=== PATIENT | female | born 1990 | race Caucasian/White ===

== ENCOUNTER → 2017-12-25 13:41 | Observation (INO) ==
[2017-12-25 10:44] LABS: Basophils # 0.1 K/mcL (0.0-0.2); Basophils % 0.4 %; Eosinophils # 0.1 K/mcL (0.0-0.6); Eosinophils % 0.8 %; Hematocrit 36.8 % (35.3-44.9); Hemoglobin 12.7 g/dL (11.5-15.4); Lymphocytes # 1.9 K/mcL (0.6-4.6); Lymphocytes % 15.5 %; Mean Corpuscular HGB Conc 34.5 g/dL (31.6-35.5); Mean Corpuscular Hemoglobin 29.4 pg (28.0-33.3); Mean Corpuscular Volume 85.2 fL (83.0-100.0); Mean Platelet Volume 11.6 fL (9.4-12.4); Monocytes # 0.7 K/mcL (0.0-1.3); Monocytes % 6.1 %; Neutrophils # 9.1 K/mcL (1.6-8.9); Platelet Count 242 K/mcL (140-400); Red Blood Count 4.32 M/mcL (3.82-4.97); Red Cell Distribution Width 13.2 % (11.5-14.5); Segmented Neutrophils % 76.2 %
[2017-12-25 10:53] LABS: Amphetamine Screen,Urine Negative ng/mL (Cutoff=1000); Barbiturate Screen,Urine Negative ng/mL (Cutoff=200); Benzodiazepines Screen,Urine Negative ng/mL (Cutoff=200); Cannabinoid Screen,Urine Negative ng/mL (Cutoff = 50); Cocaine Screen,Urine Negative ng/mL (Cutoff= 300); Opiate Screen,Urine Negative ng/mL (Cutoff=300); Phencyclidine Screen,Urine Negative ng/mL (Cutoff=25)
[2017-12-25 11:04] LABS: Alanine Aminotransferase 14 Units/L (7-52); Aspartate Amino Transferase 11 Units/L (13-39); BUN/Creatinine Ratio 13 (6-26); Blood Urea Nitrogen 6 mg/dL (6-20); Lactate Dehydrogenase 100 Units/L (140-271); Uric Acid 3.4 mg/dL (2.3-7.6); eGFR For Non-African Americans > 60 (> 60)
[~2017-12-25 13:41] MED LIST: Acetaminophen/Butalbital/CaffeineTABLET PO PRN
--- NOTE | 2017-12-25 13:49 | OB/GYN Progress Note ---
Date of Encounter: 12/25/17 Time of Encounter: 13:49 - Assessment and Plan (1) Headache in Status: Acute PIH labs negative, given 1 Fioricet tablet, headache improved, discharged home with labor and when to return to triage precautions. Qualifiers: Trimester: second trimester Qualified Code(s): O26.892 - Other specified related conditions, second trimester; R51 - Headache (2) 21 weeks gestation of Status: Acute Subjective - Subjective Interval history: 21+2 weeks gestation presents to triage for PIH eval. Patient sent over from office due to reports of headache, for the last few days unrelieved by Tylenol, and visual changes. Denies contractions vaginal bleeding or leaking of fluid Objective - Exam FHR: auscultation normal FHR comments: FHT 150 on admission and 148 at discharge. Abdomen: Present: soft, gravid - Labs Labs: Abnormal lab results WBC 11.9 K/mcL (4.3-11.1) H 12/25/17 10:15 Neutrophils # 9.1 K/mcL (1.6-8.9) H 12/25/17 10:15 Creatinine 0.47 mg/dL (0.60-1.20) L 12/25/17 10:15 AST 11 Units/L (13-39) L 12/25/17 10:15 Lactate Dehydrogenase 100 Units/L (140-271) L 12/25/17 10:15
== END | disposition home or self-care (01) ==
LOC: 1NENULAB
PROVIDERS: ADMIT Obstetrics & Gynecology; ATTEND Obstetrics & Gynecology

== ENCOUNTER → 2018-04-15 15:24 | Observation (INO) ==
[2018-04-15 14:25] LABS: Amphetamine Screen,Urine Negative ng/mL (Cutoff=1000); Barbiturate Screen,Urine Negative ng/mL (Cutoff=200)
[2018-04-15 14:27] LABS: Benzodiazepines Screen,Urine Negative ng/mL (Cutoff=300); Cannabinoid Screen,Urine Negative ng/mL (Cutoff = 50); Cocaine Screen,Urine Negative ng/mL (Cutoff= 300); Opiate Screen,Urine Negative ng/mL (Cutoff=300); Phencyclidine Screen,Urine Negative ng/mL (Cutoff=25)
[2018-04-15 15:03] LABS: Candida DNA Not Detected (Not Detect); Gardnerella DNA DETECTED (Not Detect); Trichomonas DNA Not Detected (Not Detect)
--- NOTE | 2018-04-15 15:09 | OB/GYN History & Physical ---
Date of Encounter: 04/15/18 Time of Encounter: 15:07 Assessment and Plan (1) 37 weeks gestation of Current visit: Yes Status: Acute Admitted to observation for possible fluid leakage (2) NST (non-stress test) reactive Current visit: Yes Status: Acute FHR 135 bpm, moderate variability, +15 x 15 accelerations, no decelerations (3) BV (bacterial vaginosis) Current visit: Yes Status: Acute Vaginosis panel positive for Gardnerella Flagyl prescription will be sent to patient's pharmacy of choice (4) Vaginal discharge during in third trimester Current visit: Yes Status: Acute Bacterial vaginosis sample collected and sent to lab. Returned positive for Gardnerella. Prescription will be sent to pharmacy. History of Present Illness Chief complaint: Vaginal discharge HPI: Ms. Black is a 27 year old female at 37 weeks 1 day who arrives today with complaints of possible fluid leakage since yesterday. She reports positive movement and denies vaginal bleeding. She states the discharge was watery without odor or color. She denies having to wear a maxi pad but has changed her panties multiple times. Past Med Surg Social Fam HX - Past Medical History Medical history: no medical history, migraine Psychiatric history: depression - Past Surgical History Surgical History: herniorrhaphy Additional surgical history: Umbilical hernia repair at 2 years old - Social History Smoking Status: Current every day smoker Packs per day: 1/2 PPD Smokeless Tobacco Status: No Alcohol use: none Drug use: none - Family History Mother Adopted: [place]: Pt. denies family medical history Family Member Ethnicity: Non- Living Status: Still Living Hx Family Cardiac Disorders: No Hx Family Respiratory Disorders: No Hx Family Cancer: No Hx Family GI Disorders: No Hx Family Endocrine Disorder: No Hx Family Neuromuscular Disorders: No Hx Family Neurologic Disorders: No Hx Family HEENT Disorders: No Hx Family Autoimmune Disorders: No Obstetrical History - Pregnancies : 3 Para: 2 Term: 2 : 0 Ab's: 0 Livin Medications and Allergies Vit #108/Iron/FA [ One Tablet] 1 tab PO DAILY 12/25/17 [History] Fioricet 1 cap PO PRN 04/15/18 [History] Labetalol [Trandate] 100 mg PO BID PRN 04/15/18 [History] metFORMIN [Glucophage] 500 mg PO 04/15/18 [History] Allergy/AdvReac Type Severity Reaction Status Date / Time No Known Allergies Allergy Verified 10/25/16 22:13 Exam - Constitutional Constitutional: well developed, well nourished, no acute distress, average body habitus - HEENT HEENT: Normocephaly - Neck Neck exam: full ROM, normal inspection - Lungs Respiratory exam: CTAB - Cardiovascular Cardiovascular exam: RRR, +S1, +S2 - Breasts Breast: bilateral: normal - Abdomen Abdomen: Present: bowel sounds normal, gravid, non tender - Extremities Extremities exam: full ROM, normal capillary refill, normal inspection - Vulva Vulva: bilateral: normal - Vagina Vagina: Present: normal moisture, discharge - Cervix Dilation: 3 Effacement: 0 (thick) Station: -4 - Uterus Uterus exam: Present: normal size - Anus/Rectum Anus/Rectum: Present: normal perianal skin Results Abnormal lab results Gardnerella DNA Probe DETECTED (Not Detect) A 04/15/18 13:50 All other labs normal. - VTE Reasons for not Prescribing Prophylaxis: Treatment not Indicated - Low risk for VTE
== END | disposition home or self-care (01) ==
LOC: 1NENULAB
PROVIDERS: ADMIT Registered Nurse; ATTEND Registered Nurse

== ENCOUNTER 2018-04-28 06:00 | Inpatient (IN) ==
[2018-04-28] MEDS ORDERED: *HR* Nalbuphine 10 MG/ML AMPUL IVP PRN (06:19)
[2018-04-28] MEDS ORDERED: Famotidine 20 MG/2 ML VIAL IVP PRN (06:19)
[2018-04-28] MEDS ORDERED: Metoclopramide 10 MG/2 ML VIAL IVP PRN (06:19)
[2018-04-28] MEDS ORDERED: Naloxone 0.4 MG/ML INJ IVP PRN (06:19)
[2018-04-28] MEDS ORDERED: miSOPROStol 25 MCG TABLET PO ONE (06:25)
[2018-04-28] MEDS ORDERED: Ringers Solution, Lactated 1,000 ML IVC SCH (06:30)
--- NOTE | 2018-04-28 06:51 | Anesthesia Evaluation PreOp ---
Date of Encounter: 04/28/18 Time of Encounter: 06:48 - Past History Planned Operation: del, term induction Cardiac History: Denies any Significant Hx Pulmonary History: Smoker SERVICE DELIVERY MANAGER History: Denies Any Significant HX Other Medical History: Other (depression, migraines) Anesthesia History: No Prior Anesthetic Complications, Past Anesthesia (hernia as child, denies any family hx, 2 previous epidurals one worked one did not (stated she had back labor with one)) Alcohol Use: none Drug use: none Medications and Allergies Vit #108/Iron/FA [ One Tablet] 1 tab PO DAILY 12/25/17 [History] Fioricet 1 cap PO PRN 04/15/18 [History] Labetalol [Trandate] 100 mg PO BID PRN 04/15/18 [History] metFORMIN [Glucophage] 500 mg PO 04/15/18 [History] Allergy/AdvReac Type Severity Reaction Status Date / Time No Known Allergies Allergy Verified 04/28/18 06:29 Anesthesia Exam - HEENT Pupil (Motor): Pupils equal Mallampati: III Teeth: Normal Oral Opening: Greater than 3 - SERVICE DELIVERY MANAGER LOC: Oriented SERVICE DELIVERY MANAGER Motor: Normal RUE, Normal LUE, Normal RLE, Normal LLE, Normal Face SERVICE DELIVERY MANAGER Sensory: Normal: RUE, LUE, RLE, LLE, Face - Cardiac Rhythm: Regular Murmur: None - Pulmonary Breath Sounds: bilateral Clear Respiratory Effort: Symmetrical Anesthesia Assess/Plan ASA Score: 2 Level of consciousness: Cooperative, Oriented Anesthetic Plan: General, Spinal, Epidural Monitoring Plan: Standard Monitors Recovery Plan: PACU
[2018-04-28] MEDS ORDERED: Epidural Premix (fent/bupiv) 110 ML EP SCH (07:00)
[2018-04-28 07:06] LABS: Basophils % 0.3 %; Eosinophils # 0.1 K/mcL (0.0-0.6); Eosinophils % 0.9 %; Hematocrit 39.6 % (35.3-44.9); Hemoglobin 13.5 g/dL (11.5-15.4); Immature Granulocytes % 0.9 % (0-4); Lymphocytes # 2.3 K/mcL (0.6-4.6); Lymphocytes % 19.5 %; Mean Corpuscular HGB Conc 34.1 g/dL (31.6-35.5); Mean Corpuscular Hemoglobin 29.6 pg (28.0-33.3); Mean Corpuscular Volume 86.8 fL (83.0-100.0); Mean Platelet Volume 11.7 fL (9.4-12.4); Monocytes # 1.1 K/mcL (0.0-1.3); Neutrophils # 8.1 K/mcL (1.6-8.9); Platelet Count 230 K/mcL (140-400); Red Blood Count 4.56 M/mcL (3.82-4.97); Red Cell Distribution Width 13.9 % (11.5-14.5); Segmented Neutrophils % 69.4 %
[2018-04-28 07:07] LABS: Amphetamine Screen,Urine Negative ng/mL (Cutoff=1000); Barbiturate Screen,Urine Negative ng/mL (Cutoff=200)
[2018-04-28 07:09] LABS: Benzodiazepines Screen,Urine Negative ng/mL (Cutoff=300); Cannabinoid Screen,Urine Negative ng/mL (Cutoff = 50); Cocaine Screen,Urine Negative ng/mL (Cutoff= 300); Opiate Screen,Urine Negative ng/mL (Cutoff=300); Phencyclidine Screen,Urine Negative ng/mL (Cutoff=25)
--- NOTE | 2018-04-28 08:27 | OB/GYN History & Physical ---
Date of Encounter: 04/28/18 Time of Encounter: 08:10 Assessment and Plan (1) 39 weeks gestation of Current visit: Yes Status: Acute Admit for IOL GBS negative Cytotec Consider AROM and/or pitocin for augmentation Patient may have nubain/epidural upon request Anticipate vaginal delivery POC per consult with Dr Holley (2) GDM, class A2 Current visit: Yes Status: Acute History of Present Illness Chief complaint: IOL secondary to GDM controlled by oral hypoglycemics HPI: Ms. Black is a 27 year old at 39 weeks 0 days that presents to labor and delivery for scheduled IOL secondary to GDM A2 with metformin at HS. She states no problems with previous pregnancies and this current . She states positive movement. She denies headache, vision changes, epigastric pain, leaking of fluid, vaginal disharge, vaginal bleeding, and cramping/contractions. Ultrasound - 04/11/18 EFW 6#6oz 59.5%, CHRISTY 11.5cm, BPP 8/8 Labs: GBS neg HIV NR RPR Negative Hep B NR Varicella positive Rubella positive Blood type O+ Past Med Surg Social Fam HX - Past Medical History Medical history: migraine Psychiatric history: depression - Past Surgical History Surgical History: herniorrhaphy Additional surgical history: Umbilical hernia repair at 2 years old - Social History Smoking Status: Current every day smoker Packs per day: 0.5 Smokeless Tobacco Status: No Alcohol use: none Drug use: none - Family History Mother Adopted: No Family Member Ethnicity: Non- Living Status: Still Living Hx Family Cardiac Disorders: No Hx Family Respiratory Disorders: No Hx Family Cancer: No Hx Family GI Disorders: No Hx Family Endocrine Disorder: No Hx Family Neuromuscular Disorders: No Hx Family Neurologic Disorders: No Hx Family HEENT Disorders: No Hx Family Autoimmune Disorders: No Obstetrical History - Pregnancies : 3 Para: 2 Term: 2 : 0 Ab's: 0 Livin Medications and Allergies Vit #108/Iron/FA [ One Tablet] 1 tab PO DAILY 12/25/17 [History] Fioricet 1 cap PO PRN 04/15/18 [History] Labetalol [Trandate] 100 mg PO BID PRN 04/15/18 [History] metFORMIN [Glucophage] 500 mg PO 04/15/18 [History] Allergy/AdvReac Type Severity Reaction Status Date / Time No Known Allergies Allergy Verified 04/28/18 06:29 Review of System OB All systems PM: reviewed and no additional remarkable complaints except as stated Exam - Constitutional Constitutional: well developed, well nourished, no acute distress, obese - HEENT HEENT: Normocephaly, Mucus Membranes Moist - Neck Neck exam: full ROM - Lungs Respiratory exam: CTAB - Cardiovascular Cardiovascular exam: RRR, +S1, +S2 - Abdomen Abdomen: Present: bowel sounds normal, gravid, non tender - Extremities Extremities exam: normal capillary refill, normal inspection, radial pulses palpable and symmetrical Deep Tendon Reflex Grade: 2+ Normal - Vulva Vulva: bilateral: normal - Vagina Vagina: Present: normal moisture - Cervix Dilation: 3 (3-4) Effacement: 60 (Vertex per VE) Station: -3 - Uterus Uterus exam: Present: normal size, normal contour - Anus/Rectum Anus/Rectum: Present: normal perianal skin Results Result Diagrams: 04/28/18 06:40 04/28/18 06:40 Abnormal lab results WBC 11.7 K/mcL (4.3-11.1) H 04/28/18 06:40 Glucose 119 mg/dL (70-105) H 04/28/18 06:40 All other labs normal. - VTE Reasons for not Prescribing Prophylaxis: Treatment not Indicated - Low risk for VTE
[2018-04-28] MEDS ORDERED: Oxytocin 20 units/ LR 1000 mL 20 UNIT/1,000 ML BAG IVC SCH (11:30)
--- NOTE | 2018-04-28 12:41 | OB Labor Progress Note ---
Date of Encounter: 04/28/18 Time of Encounter: 12:39 Labor Progress Note - Subjective Subjective: Patient breathing through contractions. - Vital Signs Vital Signs: VSS - Cervix Cervix: 4/70/-2 ballottable - Heart Tones Heart Tones: 140 moderate variability with 15x15 accels. Occasional variable. Cat 2 tracing. - [place]: Contractions every 2-4 minutes - Plan Physician notified: No Plan: Continue routine labor management GBS negative Titrate pitocin for adequate contractions Consider AROM when vertex well applied Patient may have nubain/epidural upon request Anticipate vaginal delivery POC per consult with Dr Holley
[2018-04-28] MEDS ORDERED: *HR* Ropivacaine/PF 0.2% 20 ML VIAL EP ONE (16:27)
[2018-04-28] MEDS ORDERED: *HR* FentaNYL (PF) 100 MCG/2 ML VIAL EP ONE (16:27)
[2018-04-28] MEDS ORDERED: *HR* FentaNYL (PF) 100 MCG/2 ML VIAL ONE (16:30)
[2018-04-28] MEDS ORDERED: Lidocaine -MPF 2% 5 ML VIAL ONE (16:30)
[2018-04-28] MEDS ORDERED: *HR* Ropivacaine/PF 0.2% 20 ML VIAL ONE (16:30)
--- NOTE | 2018-04-28 16:56 | Anesthesia Procedures ---
Addendum entered and electronically signed by Paul Monaco CRNA 04/29/18 04:59: Infant Delivery Date: 04/29/18 Delivery Time: 02:17 Original Note: Date of Encounter: 04/28/18 Time of Encounter: 16:54 Procedures: Anesthesia - Epidural/Spinal Patient ID/Chart reviewed: Yes Patient examined: Yes OB Eval: Gestational age: 39 OB Eval: : 3 OB Eval: Hx Para: 2 OB Eval: Dilated at (cm): 6 OB Eval: Contractions: Non-stressed pattern Consent Obtained: Yes Supplemental Oxygen: None/Room Air Site Prep: Aseptic Technique, Sterile prep and drape, 0.5% Chlorhexidine/Alcohol Patient position: upright Local Anesthetic: Lidocaine 1% Amount of Local Anesthetic used: 3 Touhy Needle Gauge: 18 Touhy Needle Depth (cm): 9 Catheter Depth at Skin (cm): 20 Test Dose (1.5% Lido + Epi): Volume given (mls): 3 Test Dose Result: Negative Loading Dose: Fentanyl (mcg): 100 Loading Dose: Other: rop 0.2% 10cc Loading Dose Administered: Thru Touhy Needle Infusion Med: 0.125% Bupivacaine w/ 2 mcg/ml Fentanyl Infusion Rate (mls/hr): [address]: Tegaderm Interspace Used: L2-L3 Loss of Resistance (SRIDEVI): Yes Blood: No CSF: No Paresthesia: No Procedure: aseptic, reed well, VSS, effective Vitals + FHT's: 131/78 88 fht 122
[2018-04-28] MEDS ORDERED: EPHEDrine 50 MG/ML VIAL ONE (17:10)
[2018-04-28] MEDS ORDERED: Ondansetron 4 MG/2 ML VIAL ONE ×2 (17:36→22:53)
--- NOTE | 2018-04-28 18:19 | OB Labor Progress Note ---
Date of Encounter: 04/28/18 Time of Encounter: 18:16 Labor Progress Note - Subjective Subjective: called to evaluate patient due to bradycardia. Patient just recently got an epidural blood pressure dropped and heart tones dropped into the 60s. On arrival to the right frontal been down for approximately 3 minutes were backup until 90s to low 100s. Pitocin had been turned off oxygen in place patient was placed in the left lateral position. Patient had received 35 mg of ephedrine IV push blood pressure was starting to come up. scalp monitor has been placed we could monitor the heart tones appropriately. We did discuss possible section and did get verbal consent at this time in case things went past. heart tones did recover into the 120s and 130s variability started to improve. Patient was having some slight decelerations but we could not identify what type they were so an IUPC was also placed at this time. - Cervix Cervix: 5-6/90/-3 - Heart Tones Heart Tones: heart tones 120's-130's with variability improving. - [place]: IUPC placed contractions every 2-3 minutes - Interventions Interventions: We will keep patient in left lateral position with oxygen and this time wants baby recovers and remained stable if no cervical change after an hour would recommend restarting Pitocin at the beginning.
--- NOTE | 2018-04-28 18:38 | Event Note ---
Date of Encounter: 04/28/18 Time of Encounter: 18:34 Called to patient's room for decreased FHTs; pitocin off, fluid bolus running, oxygen, and position changes. Ruptured for moderate amount of clear fluid and placed FSE; patient and fetus tolerated well. (/-2) Fetus did not respond to scalp stimulation. Dr Holley at bedside to evaluate. FHTs returned to baseline; Per Dr Holley's recommendation will wait for 45m-60m prior to restarting pitocin.
--- NOTE | 2018-04-28 22:46 | OB Labor Progress Note ---
Date of Encounter: 04/28/18 Time of Encounter: 22:44 Labor Progress Note - Subjective Subjective: Sleeping; comfortable with epidural in place - Vital Signs Vital Signs: VSS - Cervix Cervix: 7/90/-1 - Heart Tones Heart Tones: 155; occasional variable - [place]: IUPC in place; contractions every 2-3 minutes peak at 75 - Plan Physician notified: No Plan: Continue routine labor management GBS negative Titrate pitocin for adequate MVU; currently infusing at 2mu/min Anticipate vaginal delivery POC per consult with Dr Holley
--- NOTE | 2018-04-29 02:49 | OB/GYN Procedure Note ---
Delivery - Delivery Date: 04/29/18 Provider: Masha Juarez Intrapartum events: none Delivery induction: misoprostol Delivery augmentation: rupture of membranes, pitocin Delivery monitor: external FHT, external uterine, internal FHT, internal uterine Anesthesia: epidural Quantitated Blood Loss: 150 - Infant (s) Infant A Infant Delivery Date: 04/29/18 Delivery Time: 02:17 Presentation: vertex Position: BOBBY Route of delivery: Gender: Male Viability: Viable Pounds: 6 Ounces: 15 Weight Gram: 3.135 kg at 1 minute: 9 at 5 mins: 9 Shoulder Dystocia: not encountered Specimens collected: cord blood Placenta: spontaneous Cord: nuchal cord, 3 umbilical vessels, delivered through nuchal - Repair Episiotomy: none Laceration Description: Superficial - Complications Delivery complications: none Delivery comments: Patient progressed to complete and began coached pushing to of viable, vigorous male in the BOBBY position. Loose nuchal cord, delivered through. No shoulder dystocia, no meconium stained fluid. placed on maternal abdomen; warmed, dried, and stimulated. After the pulsations ceased, cord double clamped and cut with assistance of FOB. Apgars 9 and 9 at one and five minutes of age. Placenta delivered spontaneously and appears grossly intact with 3 vessel cord. Upon perineal inspection, several small hemostatic lacerations are noted and left to heal by second intention. EBL 150. Fundus firm and at umbilicus after inspection. Bleeding was light. and mother stable in recovery in skin to skin for [address] Holley notified of delivery. - Disposition Mom disposition: stable in LDR [place] disposition: stable in LDR
[2018-04-29] MEDS ORDERED: Oxytocin 20 units/ LR 1000 mL 20 UNIT/1,000 ML BAG IVC SCH (04:42)
[2018-04-29] MEDS ORDERED: Benzocaine/Menthol 56 GM AEROSOL SPRAY TP PRN (04:42)
[2018-04-29] MEDS ORDERED: Oxytocin 20 units/ LR 1000 mL 20 UNIT/1,000 ML BAG IVC ONE (04:42)
[2018-04-29] MEDS ORDERED: Acetaminophen 325 MG TABLET PO PRN (04:42)
[2018-04-29] MEDS: Ibuprofen 600 MG TABLET PO PRN ×2 (08:13→20:42)
[2018-04-29] MEDS: Prenatal Vit/FA 1 EACH TABLET PO SCH (08:13)
[2018-04-30 09:47] VITALS: BP 105/61
[2018-04-30] MEDS: Prenatal Vit/FA 1 EACH TABLET PO SCH (10:28)
[2018-04-30] MEDS: Ibuprofen 600 MG TABLET PO PRN (10:29)
--- NOTE | 2018-04-30 10:45 | Discharge Summary ---
Date of Encounter: 04/30/18 Time of Encounter: 10:41 - Discharge Diagnosis (1) Vaginal delivery Priority: Primary Status: Acute Comments: Feeling well Tolerating regular diet Pain well-controlled with by mouth pain meds Ambulating independently Voiding independently Lochia light Passing flatus, no BM yet Vital signs stable Discharge home today - Discharge Medications Prescriptions: Ibuprofen [Motrin] 600 mg PO Q6HR PRN #30 tablet PRN Reason: Cramping Docusate [Colace] 100 mg PO BID #30 capsule Home Medications: Vit #108/Iron/FA [ One Tablet] 1 tab PO DAILY 12/25/17 [History] Fioricet 1 cap PO PRN 04/15/18 [History] Labetalol [Trandate] 100 mg PO BID PRN 04/15/18 [History] Acetaminophen [Tylenol] 650 mg PO Q6HR PRN tablet 04/30/18 [Rx] Benzocaine/Menthol [place] [Dermoplast [place]] 1 appl TP QID PRN aerosol 04/30/18 [Rx] Docusate [Colace] 100 mg PO BID #30 capsule 04/30/18 [Rx] Ferrous Sulfate 325 mg PO DAILY tablet 04/30/18 [Rx] Ibuprofen [Motrin] 600 mg PO Q6HR PRN #30 tablet 04/30/18 [Rx] Allergies/Adverse Reactions: Allergy/AdvReac Type Severity Reaction Status Date / Time No Known Allergies Allergy Verified 04/28/18 06:29 Data Procedures and tests throughout hospitalization: Laboratory Tests 04/28/18 04/28/18 04/28/18 06:40 06:40 06:40 WBC 11.7 H RBC 4.56 Hgb 13.5 Hct 39.6 MCV 86.8 MCH 29.6 MCHC 34.1 RDW 13.9 Plt Count 230 MPV 11.7 Immature Gran % 0.9 Seg Neutrophils % 69.4 Lymphocytes % 19.5 Monocytes % 9.0 Eosinophils % 0.9 Basophils % 0.3 Neutrophils # 8.1 Lymphocytes # 2.3 Monocytes # 1.1 Eosinophils # 0.1 Basophils # 0.0 Glucose 119 H POC Glucose Urine Opiates Screen Negative Ur Barbiturates Screen Negative Ur Phencyclidine Scrn Negative Ur Amphetamines Screen Negative U Benzodiazepines Scrn Negative Urine Cocaine Screen Negative U Marijuana (THC) Screen Negative Ur Drug Screen Interp See Below 04/28/18 04/28/18 12:18 18:13 WBC RBC Hgb Hct MCV MCH MCHC RDW Plt Count MPV Immature Gran % Seg Neutrophils % Lymphocytes % Monocytes % Eosinophils % Basophils % Neutrophils # Lymphocytes # Monocytes # Eosinophils # Basophils # Glucose POC Glucose 89 100 H Urine Opiates Screen Ur Barbiturates Screen Ur Phencyclidine Scrn Ur Amphetamines Screen U Benzodiazepines Scrn Urine Cocaine Screen U Marijuana (THC) Screen Ur Drug Screen Interp Date of admission: 04/28/18 06:15 Primary care physician: PCP NONE Consults: 04/29/18 04:42 Consult to Line Haul Owner Operator [CONS] Routine Comment: Vaginal delivery, consult needed Discharging clinician: Masha Mercado Anticipated date of discharge: 04/30/18 - Patient Status Disposition: Home, Self-Care Condition: Good Functional capacity at discharge: independent ambulation Overall status at discharge: patient is progressing back to baseline - Discharge Instructions Follow Up With: NONE,PCP [Primary Care Provider] - Masha Juarez CNM [Advanced Practice Nurse] - - Diet and Activity Activity: increase activity as tolerated Diet: regular diet Hospital Course Procedures: s/p Reason for admission: induction of labor, IUP at term Delivery: Episiotomy: none Laceration: none Other procedures: none complications: none Discharge diagnosis: IUP at term delivered [place] baby: male Hospital course: Patient presented to L&D for induction of labor secondary to gestational diabetes controlled with metformin. Her labor progressed uneventfully to complete and she delivered a viable male infant. Her course has been uncomplicated and she will be discharged home today. Time Attestation: Total time spent providing and/or coordinating discharge services: Time Spent: Less than 30 minutes Exam - Constitutional Vitals: Temp Pulse Resp BP Pulse Ox 97.4 F L 69 18 105/61 97 04/30/18 08:30 04/30/18 08:30 04/30/18 08:30 04/30/18 08:30 04/29/18 20:40 General appearance IM: A&O X 3 - Respiratory Respiratory exam: Present: CTAB - Cardiovascular Cardiovascular exam IM: Present: RRR, +S1, +S2 - GI/Abdominal GI/Abdominal exam IM: normal bowel sounds, no peritoneal signs - Rectal Rectal exam: deferred - Uterine Tone: Firm Uterus Position: At Umbilicus, Midline - Extremities Exam Extremities exam IM: Present: normal capillary refill, normal inspection, radial pulses palpable and symmetrical - Neurological Exam Neurological exam: alert, CN II-XII intact, normal gait, oriented X3, reflexes normal, no focal deficits, strengths equal and symetr throughout - Psychiatric Additional comments: Patient denies history of anxiety and depression. Signs and symptoms of depression discussed with patient and partner and both verbalized understanding of when to seek help.
== END 2018-04-30 12:08 | disposition home or self-care (01) | DRG 560 ==
LOC: 1NENULAB 06:15 → 1NENUOBS 04-29 04:41
PROVIDERS: ADMIT Obstetrics & Gynecology; ATTEND Obstetrics & Gynecology